=== PATIENT | female | born 1945 | race Asian ===

== ENCOUNTER 2017-03-11 08:00 | Outpatient (CLI) | payer OTHER, BC ==
[~2017-03-11 08:00] MED LIST: BENICAR HCT1 TA2 PO; LYRICA50 MG PO; MOBIC15 MG PO
== END 2017-03-11 18:57 | disposition home or self-care (01) ==
LOC: MAMMO 08:00
DX: Z12.31 Encounter for screening mammogram for malignant neoplasm of breast (principal)

== ENCOUNTER 2018-03-31 14:09 | Observation (INO) | payer OTHER, BC ==
[~2018-03-31] VITALS: Ht 160 cm; Wt 95.9 kg
[2018-03-31 17:02] LABS: PLATELET COUNT 288 K/uL (152-353)
[2018-03-31 17:13] LABS: POTASSIUM 3.6 mmol/L (3.6-5.2)
[2018-03-31] MEDS ORDERED: BENICAR HCT1 TAB PO (17:41)
[2018-03-31 18:15] VITALS: BP 133/77; TEMP 97; Ht 160 cm; Wt 95.9 kg
[2018-03-31 19:57] VITALS: BP 125/72; TEMP 98.5
[2018-04-01] VITALS (7 sets, daily range): BP systolic 107–131; BP diastolic 53–73; TEMP 98–98.4
[2018-04-01 10:28] LABS: POTASSIUM 3.4 mmol/L (3.6-5.2)
[2018-04-02 04:00] VITALS: BP 116/62; TEMP 98.4
[2018-04-02 07:46] LABS: PLATELET COUNT 221 K/uL (152-353)
[2018-04-02 08:03] VITALS: BP 102/66; TEMP 98.2
[2018-04-02 08:14] LABS: POTASSIUM 3.8 mmol/L (3.6-5.2)
== END 2018-04-02 10:53 | disposition home or self-care (01) ==
LOC: MED/SURG 14:09
PROVIDERS: Emergency Medicine; ADMIT Nurse Practitioner Family
DX: J20.9 Acute bronchitis, unspecified (principal); I10 Essential (primary) hypertension; K21.9 Gastro-esophageal reflux disease without esophagitis; E66.01 Morbid (severe) obesity due to excess calories; M15.8 Other polyosteoarthritis; F41.8 Other specified anxiety disorders; Z68.37 Body mass index [BMI] 37.0-37.9, adult; Z71.3 Dietary counseling and surveillance; E87.6 Hypokalemia
CPT/HCPCS: 36415; 80048; 80053; 82805; 84439; 84443; 84481; 84484; 85027; 87040; 87502; 87899; 93005; 94640; 94664; 94760; 99220; G0378; G0379; J0456; J0696; J1650

== ENCOUNTER 2018-05-03 13:19 | Outpatient (CLI) | payer OTHER, BC ==
[~2018-05-03 13:19] MED LIST changes: +BENICAR HCT1 TAB PO
== END 2018-05-03 23:59 | disposition home or self-care (01) ==
LOC: MAMMO 13:19
DX: Z12.31 Encounter for screening mammogram for malignant neoplasm of breast (principal)

== ENCOUNTER 2019-04-14 05:23 | Observation (INO) | payer OTHER, BC ==
[2019-04-14] VITALS (9 sets, daily range): BP systolic 106–143; BP diastolic 54–83; TEMP 97–98.1; Ht 160 cm; Wt 88.5 kg
[~2019-04-14] VITALS: Ht 160 cm; Wt 88.5 kg
[2019-04-14] MEDS ORDERED: RANI150T78 PO (05:43)
[2019-04-14] MEDS ORDERED: HYDROCHLOROT12.5 M1 PO (05:43)
[2019-04-14] MEDS ORDERED: PANTOPRAZOLE 40MG TA PO (05:44)
[2019-04-14] MEDS ORDERED: METRONIDAZOLE500 MG PO (05:44)
[2019-04-14] MEDS ORDERED: ASPIR-8181 MG PO (05:45)
[2019-04-14] MEDS ORDERED: AMOX500T5 PO (05:45)
[2019-04-14] MEDS ORDERED: NYST100010 EX (05:46)
[2019-04-14 05:55] LABS: PLATELET COUNT 249 K/uL (152-353)
[2019-04-14 05:56] LABS: POTASSIUM 3.4 mmol/L (3.6-5.2); SODIUM 139 mmol/L (136-145)
[2019-04-14 06:39] LABS: PARTIAL THROMBOPLASTIN TIME 28.1 SECONDS (24.5-33.6)
[2019-04-14] MEDS ORDERED: AMOX500C85 PO (08:43)
[2019-04-15 04:00] VITALS: BP 102/58; TEMP 98.9
[2019-04-15 08:00] VITALS: BP 210/90; TEMP 98.3
== END 2019-04-15 10:20 | disposition home or self-care (01) ==
LOC: ED 05:23 → MED/SURG 07:11
PROVIDERS: ADMIT Family Medicine
DX: R07.89 Other chest pain (principal); I10 Essential (primary) hypertension; E66.01 Morbid (severe) obesity due to excess calories; K21.9 Gastro-esophageal reflux disease without esophagitis; F41.8 Other specified anxiety disorders
CPT/HCPCS: 80053; 82550; 84484; 85027; 85610; 85730; 93005; 96374; 99220; 99284; G0378; J1650; J3490; J7060

== ENCOUNTER 2019-11-14 11:55 | Day surgery (SDC) | payer OTHER, BC ==
[~2019-11-14] VITALS: Ht 1 cm; Wt 1.0 kg
[~2019-11-14 11:55] MED LIST changes: +AMOX500C85 PO; +AMOX500T5 PO; +ASPIR-8181 MG PO; +HYDROCHLOROT12.5 M1 PO; +METRONIDAZOLE500 MG PO; +NYST100010 EX; +PANTOPRAZOLE 40MG TA PO; +RANI150T78 PO
== END 2019-11-14 14:55 | disposition home or self-care (01) ==
LOC: OR 11:55
PROC: 0DB68ZZ Excision of Stomach, Via Natural or Artificial Opening Endoscopic (ICD-10-PCS; principal; 2019-11-14)
PROC: 0D738ZZ Dilation of Lower Esophagus, Via Natural or Artificial Opening Endoscopic (ICD-10-PCS; 2019-11-14)
DX: K29.50 Unspecified chronic gastritis without bleeding (principal); K22.4 Dyskinesia of esophagus; K22.2 Esophageal obstruction; R13.19 Other dysphagia; K21.0 Gastro-esophageal reflux disease with esophagitis; R10.13 Epigastric pain
CPT/HCPCS: 93005; J0282; J2001; J2704

== ENCOUNTER 2020-02-13 10:21 | Outpatient (CLI) | payer OTHER, BC | END 2020-02-13 23:59 | disposition home or self-care (01) | LOC: MAMMO 10:21 | PROVIDERS: ATTEND Nurse Practitioner Family | DX: Z12.31 Encounter for screening mammogram for malignant neoplasm of breast (principal) ==

== ENCOUNTER 2020-12-31 11:16 | Outpatient (CLI) | payer BC | END 2020-12-31 20:07 | disposition home or self-care (01) | LOC: RESP 11:16 | PROVIDERS: ATTEND Nurse Practitioner Family | DX: R07.89 Other chest pain (principal) | CPT/HCPCS: 93005; 93225 ==

== ENCOUNTER 2021-02-09 09:04 | Outpatient (CLI) | payer BC | END 2021-02-09 19:36 | disposition home or self-care (01) | LOC: RESP 09:04 | PROVIDERS: ATTEND Nurse Practitioner Family | DX: R00.1 Bradycardia, unspecified (principal) ==

== ENCOUNTER 2021-03-24 09:47 | Outpatient (CLI) | payer BC, OTHER | END 2021-03-24 19:10 | disposition home or self-care (01) | LOC: LABW 09:47 | PROVIDERS: ATTEND Otolaryngology | DX: E04.2 Nontoxic multinodular goiter (principal) | CPT/HCPCS: 36415; 84443 ==

== ENCOUNTER 2021-06-09 13:31 | Outpatient (CLI) | payer BC, OTHER ==
[2021-06-09 13:51] LABS: PLATELET COUNT 255 K/uL (152-353)
[2021-06-09 14:10] LABS: POTASSIUM 4.5 mmol/L (3.6-5.2)
== END 2021-06-09 19:13 | disposition home or self-care (01) ==
LOC: LABW 13:31
PROVIDERS: ATTEND Internal Medicine Cardiovascular Disease
DX: I10 Essential (primary) hypertension (principal); Z09 Encounter for follow-up examination after completed treatment for conditions other than malignant neoplasm
CPT/HCPCS: 36415; 80048; 85027

== ENCOUNTER 2021-07-28 13:09 | Outpatient (CLI) | payer BC, OTHER | END 2021-07-28 18:59 | disposition home or self-care (01) | LOC: MAMMO 13:09 | PROVIDERS: ATTEND Nurse Practitioner | DX: Z12.31 Encounter for screening mammogram for malignant neoplasm of breast (principal) ==

== ENCOUNTER 2022-09-14 00:29 | Emergency (ER) | payer BC, OTHER ==
[~2022-09-14] VITALS: Ht 160 cm; Wt 83.0 kg
[2022-09-14 01:18] LABS: PLATELET COUNT 248 K/uL (152-353)
[2022-09-14 01:36] LABS: PARTIAL THROMBOPLASTIN TIME 29.3 SECONDS (23.9-36.7)
[2022-09-14 01:41] LABS: POTASSIUM 4.2 mmol/L (3.6-5.2); SODIUM 141 mmol/L (136-145)
[2022-09-14 02:35] VITALS: BP 145/81; TEMP 98.1
== END 2022-09-14 02:35 | disposition home or self-care (01) ==
LOC: ED 00:29
PROVIDERS: Family Medicine
DX: R42 Dizziness and giddiness (principal); R53.1 Weakness; I10 Essential (primary) hypertension; J32.9 Chronic sinusitis, unspecified
CPT/HCPCS: 36415; 80053; 80307; 81002; 82550; 84484; 85027; 85610; 85730; 93005; 99283

== ENCOUNTER 2022-09-29 09:34 | Outpatient (CLI) | payer BC, OTHER | END 2022-09-29 20:24 | disposition home or self-care (01) | LOC: MAMMO 09:34 | PROVIDERS: ATTEND Nurse Practitioner | DX: Z12.31 Encounter for screening mammogram for malignant neoplasm of breast (principal) ==